=== PATIENT | female | born 1985 | race Hispanic/Latino ===

== ENCOUNTER → 2017-11-28 | Outpatient (CLI) | payer MEDICAID | END | disposition home or self-care (01) | LOC: RAH 08:04 | PROVIDERS: ATTEND Family Medicine | DX: K76.0 Fatty (change of) liver, not elsewhere classified (principal) | CPT/HCPCS: 76700 ==

== ENCOUNTER → 2020-09-15 | Outpatient (CLI) | payer MEDICAID | END | disposition home or self-care (01) | LOC: RAH 09:28 | PROVIDERS: ATTEND Family Medicine | DX: K76.0 Fatty (change of) liver, not elsewhere classified (principal); R16.0 Hepatomegaly, not elsewhere classified; Z90.49 Acquired absence of other specified parts of digestive tract | CPT/HCPCS: 76705 ==

== ENCOUNTER 2021-12-03 18:37 | Emergency (ER) | payer MEDICAID ==
[~2021-12-03] VITALS: Ht 157.5 cm; Wt 83.0 kg
[2021-12-03 20:17] VITALS: BP 120/60
[2021-12-03] MEDS ORDERED: CETI10TA57 PO (21:07)
[2021-12-03] MEDS ORDERED: AZIT500T2 PO (21:07)
[2021-12-03] MEDS ORDERED: BENZ-39 PO (21:07)
== END 2021-12-03 21:13 | disposition home or self-care (01) ==
LOC: EDH 18:37
DX: J40 Bronchitis, not specified as acute or chronic (principal); Z20.822 Contact with and (suspected) exposure to COVID-19; Z88.0 Allergy status to penicillin
CPT/HCPCS: 87635; 87804 ×2; 99283; C9803

== ENCOUNTER 2023-03-22 08:41 | Emergency (ER) | payer MEDICAID ==
[~2023-03-22] VITALS: Ht 157.5 cm; Wt 90.7 kg
[~2023-03-22 08:41] MED LIST: AZIT500T2 PO; BENZ-39 PO; CETI10TA57 PO
[2023-03-22 08:44] VITALS: BP 114/74; PULSE 68; RESP 16
[2023-03-22] MEDS ORDERED: ONDANSETRON 4MG INJ IVP ONE (09:30)
[2023-03-22] MEDS ORDERED: 0.9%NACL 1000ML 1,000 ML IV ONE (09:30)
[2023-03-22 09:57] LABS: BASOPHILS # (AUTO) 0.04 K/uL (0.00-0.20); BASOPHILS % (AUTO) 0.7 % (0.0-5.0); EOSINOPHILS # (AUTO) 0.16 K/uL (0.00-0.70); EOSINOPHILS % (AUTO) 2.7 % (0.0-8.0); HEMATOCRIT 38.3 % (36-48); IMMATURE GRANULOCYTE ABSOLUTE 0.02 K/uL (0-1); LYMPHOCYTES # (AUTO) 1.3 K/uL (1.0-4.8); LYMPHOCYTES % (AUTO) 21.6 % (21.0-51.0); MEAN CORPUSCULAR HEMOGLOBIN 27.8 pg (27.0-33.0); MEAN CORPUSCULAR HGB CONC 32.6 g/dL (32.0-36.0); MEAN CORPUSCULAR VOLUME 85.3 fL (79-99); MONOCYTES # (AUTO) 0.5 K/uL (0.1-1.0); MONOCYTES % (AUTO) 9.1 % (3.0-13.0); NEUTROPHILS # (AUTO) 3.9 K/uL (1.8-7.7); NEUTROPHILS % (AUTO) 65.6 % (40.0-77.0); PLATELET COUNT (AUTO) 221 K/uL (130-400); RED BLOOD CELL COUNT(AUTO) 4.49 MIL/uL (4.00-5.50); RED CELL DISTRIBUTION WIDTH 13.8 % (11.0-15.5); WHITE BLOOD COUNT (AUTO) 5.9 K/uL (4.8-10.8)
[2023-03-22 10:01] LABS: APPEARANCE,URINE CLEAR (CLEAR); BILIRUBIN,URINE NEGATIVE (NEGATIVE); COLOR,URINE YELLOW (YELLOW); GLUCOSE, URINE (UA) NEGATIVE (NEGATIVE); KETONES,URINE NEGATIVE (NEGATIVE); LEUKOCYTE ESTERASE ,URINE NEGATIVE Leu/uL (NEGATIVE); NITRATE,URINE NEGATIVE (NEGATIVE); PH,URINE 5.5 (5.0-8.0); PROTEIN,URINE 10 mg/dL (NEGATIVE); UROBILINOGEN,URINE 0.2 mg/dL (0.2-1.0)
[2023-03-22 10:09] LABS: INFLUENZA TYPE A Negative For Type A (NEGATIVE)
[2023-03-22 10:09] LABS: CREATININE 0.6 mg/dL (0.5-1.5); POTASSIUM 3.8 mmol/L (3.5-5.1)
[2023-03-22 10:14] LABS: ALBUMIN 3.8 g/dL (3.5-5.0); BILIRUBIN,TOTAL 0.5 mg/dL (0.2-1.0); TOTAL PROTEIN, SERUM 8.4 g/dL (6.0-8.3)
[2023-03-22 10:17] LABS: INFLUENZA TYPE B Positive For Type B (NEGATIVE)
[2023-03-22 10:17] LABS: ADD UA MICROSCOPIC YES
[2023-03-22 10:31] LABS: BACTERIA,URINE RARE /HPF (None Seen); MUCUS,URINE RARE LPF (None Seen); SQUAMOUS EPITHELIAL CELL,UR RARE /HPF (0-2); WBC,URINE 0-1 /HPF (0-1)
[2023-03-22 10:37] LABS: HCG,QUALITATIVE URINE NEGATIVE (NEGATIVE)
[2023-03-22] MEDS ORDERED: ONDA4TAB10 PO (11:08)
[2023-03-22] MEDS ORDERED: OSEL75 PO (11:08)
== END 2023-03-22 11:24 | disposition home or self-care (01) ==
LOC: EDH 08:41
DX: J10.1 Influenza due to other identified influenza virus with other respiratory manifestations (principal); R11.2 Nausea with vomiting, unspecified; R19.7 Diarrhea, unspecified; E86.9 Volume depletion, unspecified; K21.9 Gastro-esophageal reflux disease without esophagitis; M19.90 Unspecified osteoarthritis, unspecified site; Z88.0 Allergy status to penicillin; Z90.49 Acquired absence of other specified parts of digestive tract
CPT/HCPCS: 99283; 96374; 96361; 80053; 83690; 85025; 87804 ×2; 81001; 81025; 36415; J7030; J2405

== ENCOUNTER 2024-07-30 07:16 | Emergency (ER) | payer MEDICAID, OTHER ==
[~2024-07-30] VITALS: Ht 157.5 cm; Wt 95.3 kg
[~2024-07-30 07:16] MED LIST changes: +ONDA-243 PO; +OSEL75 PO
--- NOTE | 2024-07-30 08:08 | ERN ---
General Chief Complaint: Back Pain-No Injury Stated Complaint: BACK PAIN Time Seen by MD: 07:27 History of Present Illness Initial Comments Ms. Field is a 38-year-old female with no pertinent past medical history came to ER with complaints of lower back pain since last few days but was aggravated this morning when she tried to bend down and heard a popping sensation in her lower back, denies any numbness or tingling or weakness. Has no bowel or bladder incontinence. No recent travel history or infections. Denies chest p ain or palpitations or shortness of breath or abdominal pain or nausea or vomitings. Allergies: Coded Allergies: Penicillins (Unverified Allergy, Unknown, RASH, 12/03/21) Home Meds Active Scripts Oseltamivir Phosphate (Tamiflu) 75 Mg Cap, 75 MG PO BID for 5 Days, #10 CAP 0 Refills Prov:ROBB QUIGLEY MD 03/22/23 Ondansetron (Ondansetron Odt) 4 Mg Tab.rapdis, 4 MG PO TIDP, #12 TAB 0 Refills Prov:ROBB QUIGLEY MD 03/22/23 Benzonatate (Tessalon Perles) 100 Mg Cap, 100 MG PO TID, #15 CAP Prov:[facility]LESTE [facility] 12/03/21 Cetirizine HCl (Cetirizine HCl) 10 Mg Tablet, 10 MG PO DAILY, #15 TAB Prov:FITTINGCELESTEP 12/03/21 Azithromycin (Zithromax Tri-Matthieu) 500 Mg Tablet, 500 MG PO DAILY, #5 TAB Prov:FITTINGCELESTEP 12/03/21 Past Medical History Past Medical History: No Pertinent History Medical History Other: DENIES PMHX Past Surgical History: Cholecystectomy, BTL Female( History) LMP: Jul 23, 2024 : 3 Para: 3 Aborts: 0 ROS Dictation Constitutional: No appetite loss, No fevers, chills , No night sweats, No weakness, fatigue Eye: No vision change, No redness, pain or discharge ENT: No hearing loss, ear pain or discharge, No nose bleeds, No sore throat, Neck: No swelling. pain or stiffness Respiratory: No cough, shortness of breath, wheezing Cardiovascular: No chest pain,, palpitations, dyspnea, No edema Gastrointestinal: No abdominal pain, No nausea, vomiting, No diarrhea, constipation Genitourinary: No painful urination, No blood in urine, No urinary incontinence, No frequency or urgency Musculoskeletal: lower back ache, No joint pain, muscle pain, swelling or stiffness Neurological: No numbness, tingling, No weakness, tremors or seizures Physical Exam Physical Exam Dictation General: Alert & Oriented, No acute distress. EENT: No conjunctival redness or discharge noted Tympanic membranes are clear, Normal hearing No nasal discharge Neck: Non-tender, No jugular vein distention, No lymphadenopathy, No thyromegaly, Supple. Respiratory: Lungs are clear to auscultation, Respirations are non-labored, Breath sounds are equal, No chest wall tenderness, _. Cardiovascular: Normal rate, Normal rhythm, No murmur, Good pulses equal in all extremities, Normal peripheral perfusion, No edema. Gastrointestinal: Soft, Non-tender, Non-distended, Normal bowel sounds, No organomegaly, _. Musculoskeletal: Normal range of motion, Normal strength, No tenderness, No swelling, No deformity, Normal gait. Integumentary: Warm, Dry, [place], Intact, No pallor, No rash. Neurologic: Alert, Oriented x4, Normal sensory, No focal defects Psychiatric: Cooperative, Appropriate mood & affect, Normal judgement, Non- suicidal. MDM The differential diagnosis entertained at this time includes: Lumbar strain, compression fracture A full comprehensive workup will be performed to identify the underlying problem. The patient will be monitored closely throughout the emergency department stay. The disposition will depend on the workup results and frequent re-evaluations MDM: Rationale: Tests considered and ordered secondary to shared decision making include: CBC, CMP, Urinalysis,, ECG and radiology Previous outside records reviewed: Old ER visits. Risk of complication and/or morbidity or mortality of patient management: None Medications-Per medication reconciliation Need for hospitalization: Patient does meet criteria for hospitalization. Need for emergency major/minor surgery: No There are no social concerns with this patient. Prescription drug management Prescriptions will include symptomatic care Patient's prior external medical records from other ER visits were reviewed by me as indicated. Prior testing and results from previous visits were reviewed. Prior tests were taken into account with medical decision making and resource utilization, independent historian/historians were used to obtain complete medical history. I independently interpreted the test that were performed, results were reviewed by me and considered findings on radiology if ordered. Medical management and examination interpretation discussions were had by me w ith other qualified healthcare professionals as indicated for the patient's care. ED Course Orders Procedure Category Date Status Time Ketorolac PHA 07/30/24 Complete Tromethamine 15mg/Ml 08:00 Orphenadrine Citrate PHA 07/30/24 Complete (Norflex) 08:00 Current Medications Medications (Trade) Dose Ordered Sig/[place] Route PRN Reason Start Time Stop Time Status Last Admin Dose Admin Ketorolac Tromethamine (toRADol) 15 mg ONCE ONCE IM 07/30/24 08:00 07/30/24 08:01 DC 07/30/24 08:18 Orphenadrine Citrate (Norflex) 60 mg ONCE ONCE IM 07/30/24 08:00 07/30/24 08:01 DC 07/30/24 08:18 Vital Signs Date Time Temp Pulse Resp B/P (MAP) Pulse Ox O2 Delivery O2 Flow Rate FiO2 07/30/24 09:30 97.5 55 18 109/72 99 Room Air* 0 21 07/30/24 07:33 97.5 65 18 121/74 98 Room Air* 0 21 07/30/24 07:29 97.5 65 18 121/74 98 Room Air 0 DX & DISP Disposition: Discharge Departure Impression: Primary Impression: Lumbar strain Critical Time: 30 minutes Condition: Stable Scripts Ibuprofen (Ibuprofen) 600 Mg Tablet 600 MG PO Q6H PRN for PAIN for 7 Days, #30 TAB Prov: CHERRY KWON MD 07/30/24 Methocarbamol (Robaxin) 750 Mg Tab 1 TAB PO TID for 7 Days, #21 TAB 0 Refills Prov: CHERRY KWON MD 07/30/24 Additional Instructions: Avoid lifting heavy objects, return to ED if numbness or tingling or weakness noted. The patient is now being discharged to home and should follow up with the [facility] physician or the specialist as directed by the ER staff. Follow-up with primary care provider in 1 to 2 days. Take medications as directed here in the emergency room. Okay to continue home medications unless otherwise discussed during your visit in the emergency room today. Return to your nearest emergency room if symptoms worsen or if there is no improvement. Call 911 if you need immediate assistance. Take Tylenol or Motrin [id number] as needed and if no contraindications are present. Increase oral hydration. Referrals: SELF,REFERRAL (PCP) ATTESTATION BY PHYSICIAN I have seen and examined the patient. I reviewed the documentation, medical decision making, and treatment plan as noted by the resident provider above. I agree with the findings and plan of care. Saul Good MD, NIHITHA MD Jul 30, 2024 08:08
[2024-07-30] MEDS: ketOROlac 15MG/ML VIAL (15MG/ML) IM ONE (08:18)
[2024-07-30] MEDS: ORPHENADRINE 60MG/2ML IM ONE (08:18)
[2024-07-30 09:30] VITALS: BP 109/72; PULSE 55; RESP 18; TEMP 97.5; O2SAT 99
[2024-07-30] MEDS ORDERED: IBUP-2070 PO (09:36)
[2024-07-30] MEDS ORDERED: METH-662 PO (09:36)
== END 2024-07-30 09:51 | disposition home or self-care (01) ==
LOC: EDH 07:16
DX: S39.012A Strain of muscle, fascia and tendon of lower back, initial encounter (principal); Z88.0 Allergy status to penicillin; Z90.49 Acquired absence of other specified parts of digestive tract; Z98.51 Tubal ligation status; X58.XXXA Exposure to other specified factors, initial encounter; Y93.89 Activity, other specified; Y92.89 Other specified places as the place of occurrence of the external cause; Y99.8 Other external cause status
CPT/HCPCS: 99284; 96372 ×2; J1885; J2360

== ENCOUNTER 2025-05-27 15:59 | Emergency (ER) | payer SELFPAY ==
[~2025-05-27] VITALS: Ht 157.5 cm; Wt 96.2 kg
[~2025-05-27 15:59] MED LIST changes: +IBUP-1492 PO; +METH-662 PO
[2025-05-27 16:00] VITALS: BP 107/67; PULSE 82; RESP 18; TEMP 97.8
--- NOTE | 2025-05-27 16:42 | ERN ---
ED Note History of Present Illness Stated Complaint: RIGHT HAND INJURY Chief Complaint: Wrist Pain/Injury Time Seen by MD: 16:00 Time Seen by Midlevel: 16:01 Dictation: 39-year-old female presents to the emergency department due to reported having sustained a fall or loss 2 hours prior to arrival. She states that she slipped and landed her right wrist. At this time, she rates her level of discomfort as a 10/10. The patient states the pain is primarily with movement. Upon initial evaluation, the patient presents with a normal neurovascular examination. 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 Home Meds Active Scripts Ibuprofen (Ibuprofen) 600 Mg Tablet, 600 MG PO Q6H PRN for PAIN for 7 Days, #30 TAB Prov:CHERRY KWON MD 07/30/24 Methocarbamol (Robaxin) 750 Mg Tab, 1 TAB PO TID for 7 Days, #21 TAB 0 Refills Prov:CHERRY KWON MD 07/30/24 Oseltamivir Phosphate (Tamiflu) 75 Mg Cap, 75 MG PO BID for 5 Days, #10 CAP 0 Refills Prov:ROBB QUIGLEY MD 03/22/23 Ondansetron (Ondansetron Odt) 4 Mg Tab.rapdis, 4 MG PO TIDP, #12 TAB 0 Refills Prov:ROBB QUIGLEY MD 03/22/23 Benzonatate (Tessalon Perles) 100 Mg Cap, 100 MG PO TID, #15 CAP Prov:CELESTE CALHOUNP 12/03/21 Cetirizine HCl (Cetirizine HCl) 10 Mg Tablet, 10 MG PO DAILY, #15 TAB Prov:FITTINGCELESTEP 12/03/21 Azithromycin (Zithromax Tri-Matthieu) 500 Mg Tablet, 500 MG PO DAILY, #5 TAB Prov:CELESTE CALHOUNP 12/03/21 Past Medical History Past Medical History: GERD Additional Past Medical Hx: DENIES PMHX Surgical History: Cholecystectomy Surgical History Other: TUBAL LIGATION PSYCH History: no pertinent psych hx : 3 Para: 3 Aborts: 0 RN Note Reviewed/Agreed w/PFSH: Yes Review of System Dictation MS/Extremity: Right wrist sprain Initial Vital Sign VS Vital Signs Date Time Temp Pulse Resp B/P (MAP) Pulse Ox O2 Delivery O2 Flow Rate FiO2 05/27/25 16:00 97.9 82 18 107/67 99 Room Air Physical Exam Dictation General: awake, alert, NAD Head/Face: Normocephalic, atraumatic Eyes: PERRL, EOMI ENT: Oral mucosa moist Neck: Trachea midline, supple Cardiovascular: RRR, no edema Respiratory: Symmetrical, non-labored Abdomen: Soft, non-tender, non-distended, no guarding. Skin: Warm, dry, good turgor, no rash MS/Extremity: Painful Range of motion, swelling and tenderness of the right wrist. Normal neurovascular examination. Neuro: COAx4, GCS 15, steady gait, Psych: Normal behavior, mood, and affect normal Results (Laboratory/Radiology) X-RAY Comment: Three-view x-ray of the right wrist with no cortical anomalies or deformities as interpreted by me. ED Course ED Course Orders Procedure Category Date Status Time Wrist Comp 3+Vws Rt RAD 05/27/25 Resulted 16:38 Acetaminophen 500mg PHA 05/27/25 Complete Tab (Tylenol 500mg T 17:00 Current Medications Medications (Trade) Dose Ordered Sig/[place] Route PRN Reason Start Time Stop Time Status Last Admin Dose Admin Acetaminophen (TYLenol 500MG TAB) 1,000 mg ONCE PO 05/27/25 17:00 05/27/25 18:53 DC Vital Signs Date Time Temp Pulse Resp B/P (MAP) Pulse Ox O2 Delivery O2 Flow Rate FiO2 05/27/25 16:00 97.9 82 18 107/67 99 Room Air Medical Decision Making MDM MDM: Differential diagnosis: Wrist sprain, right wrist fracture, right wrist contusion. Rationale: Tests considered and ordered secondary to shared decision making include: Previous outside records reviewed: Old ER visits. Risk of complication and/or morbidity or mortality of patient management: None Medications-Per medication reconciliation Need for hospitalization: Patient does not meet criteria for hospitalization. Need for emergency major/minor surgery: No There are no social concerns with this patient. Prescription drug management Prescriptions will include symptomatic care Patient's prior external medical records from other ER visits were reviewed by me as indicated. Prior testing and results from previous visits were reviewed. Prior tests were taken into account with medical decision making and resource utilization, independent historian/historians were used to obtain complete medical history. I independently interpreted the test that were performed, results were reviewed by me and considered findings on radiology if ordered. Medical management and examination interpretation discussions were had by me with other qualified healthcare professionals as indicated for the patient's care. DX & DISP Disposition: Discharge Departure Impression: Primary Impression: Right wrist sprain Condition: Stable Referrals: ENIO SOSA MD (PCP) Time of Disposition: 18:24 ATTESTATION BY PHYSICIAN I PERFORMED THE SUBSTANTIVE PORTION OF THE VISIT. I HAVE REVIEWED AND PERSONALLY MADE AND APPROVED THE MANAGEMENT PLAN THAT IS DOCUMENTED IN THE NOTE BY MYSELF FOR THE A PP. KATHRYN KHAN May 27, 2025 16:41 RASHARD CHAPPELL MD May 30, 2025 07:49
--- NOTE | 2025-05-27 18:29 | HMCIMG ---
EXAM: CR right Wrist, 3 View. CLINICAL HISTORY: pain COMPARISON: None provided. FINDINGS: BONES: No acute fracture or aggressive appearing osseous lesion. JOINTS: No dislocation. The carpal bones demonstrate normal alignment. SOFT TISSUES: The soft tissues are unremarkable. IMPRESSION: No acute osseous abnormality. No acute fracture or dislocation. /[place]
== END 2025-05-27 18:53 | disposition home or self-care (01) ==
LOC: EDH 15:59
DX: S63.501A Unspecified sprain of right wrist, initial encounter (principal); K21.9 Gastro-esophageal reflux disease without esophagitis; Z88.0 Allergy status to penicillin; Z90.49 Acquired absence of other specified parts of digestive tract; Z79.899 Other long term (current) drug therapy; W01.0XXA Fall on same level from slipping, tripping and stumbling without subsequent striking against object, initial encounter; Y93.89 Activity, other specified; Y92.89 Other specified places as the place of occurrence of the external cause; Y99.8 Other external cause status
CPT/HCPCS: 73110; 99283